=== PATIENT | female | born 2005 | race Caucasian/White ===

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

== ENCOUNTER 2023-10-12 14:40 | Outpatient (CLI) | payer OTHER, SELFPAY ==
--- NOTE | ~2023-10-12 | XR_ITS ---
XR chest 2V 10/12/2023 14:50 Indication: Cough for 5 days Procedure: 2 view chest Comparison: Comparison to multiple prior studies sequentially, with oldest reviewed study dated 03/10. Findings: No focal air space disease, pulmonary edema, pleural effusion or suspected pneumothorax. Th ere is soft tissue attenuation in the right lower thorax. No acute osseous abnormality. Impression: 1: No acute cardiopulmonary disease. Reviewed, dictated and finalized at location A. Impression: 1: No acute cardiopulmonary disease.
== END 2023-10-12 14:41 ==
PROVIDERS: PCP Internal Medicine; Visit Provider Internal Medicine
DX: R05.9 Cough, unspecified (principal)
CPT/HCPCS: 71046

== ENCOUNTER 2023-10-12 14:51 | Outpatient (CLI) | payer OTHER, SELFPAY ==
[2023-10-12 18:48] LABS: Basophils Percent Auto 0.6 % (0.2-1.2); Eosinophils Percent Auto 0.6 % (0-4.4); Hematocrit 41.7 % (37.0-47.0); Hemoglobin 14.1 g/dL (12.0-15.0); Immature Granulocyte Absolute 0.01 K/mm3 (0.00-0.031); Immature Granulocyte Percent A 0.2 % (0-0.5); Lymphocytes Absolute Auto 1.84 K/mm3 (0.9-3.2); Lymphocytes Percent Auto 35.9 % (18.3-44.2); Mean Corpuscular HGB Conc 33.8 g/dl (32-36); Mean Corpuscular Hemoglobin 27.7 pg (26-34); Mean Corpuscular Volume 81.9 fl (80-100); Mean Platelet Volume 12.9 fl (7.4-10.4); Monocytes Absolute Auto 0.5 K/mm3 (0.1-0.6); Monocytes Percent Auto 9.6 % (2.6-8.5); Neutrophils Absolute Auto 2.7 K/mm3 (1.3-6.7); Neutrophils Percent Auto 53.1 % (45.5-73.1); Platelet Count Result 167 k/mm3 (150-375); Red Blood Count 5.09 M/mm3 (4.2-5.4); Red Cell Distribution Width 13.1 % (11.5-14.5); White Blood Count 5.1 K/mm3 (4.5-10.0)
[2023-10-12 19:09] LABS: Strep Group A RT-PCR NOT DETECTED (Negative)
[2023-10-12 19:20] LABS: Influenza A QL RT-PCR Positive (Negative); Influenza B QL RT-PCR Negative (Negative); RSV RNA, RT-PCR Negative (Negative); SARS-CoV-2 RNA PCR Negative (Negative)
== END 2023-10-12 14:52 | disposition home or self-care (01) ==
LOC: ANHGOSHLAB 14:52
PROVIDERS: PCP Internal Medicine; Visit Provider Internal Medicine
DX: R05.9 Cough, unspecified (principal); R52 Pain, unspecified; J02.9 Acute pharyngitis, unspecified
CPT/HCPCS: 36415; 85025; 87637; 87651

== ENCOUNTER 2024-10-07 12:31 | Outpatient (CLI) | payer BC, SELFPAY ==
[2024-10-07 14:07] LABS: Basophils Absolute Auto 0.1 K/mm3 (0.0-0.1); Basophils Percent Auto 0.9 % (0.2-1.2); Eosinophils Absolute Auto 0.2 K/mm3 (0-0.3); Eosinophils Percent Auto 2.8 % (0-4.4); Hemoglobin 14.6 g/dL (12.0-15.0); Immature Granulocyte Absolute 0.03 K/mm3 (0.00-0.031); Immature Granulocyte Percent A 0.4 % (0-0.5); Lymphocytes Absolute Auto 2.41 K/mm3 (0.9-3.2); Lymphocytes Percent Auto 34.3 % (18.3-44.2); Mean Corpuscular HGB Conc 33.2 g/dl (32-36); Mean Corpuscular Hemoglobin 28.4 pg (26-34); Mean Corpuscular Volume 85.6 fl (80-100); Mean Platelet Volume 11.3 fl (7.4-10.4); Monocytes Absolute Auto 0.4 K/mm3 (0.1-0.6); Monocytes Percent Auto 6.3 % (2.6-8.5); Neutrophils Absolute Auto 3.9 K/mm3 (1.3-6.7); Neutrophils Percent Auto 55.3 % (45.5-73.1); Platelet Count Result 308 k/mm3 (150-375); Red Blood Count 5.14 M/mm3 (4.2-5.4); Red Cell Distribution Width 12.3 % (11.5-14.5)
--- OUTSIDE RECORDS SUMMARY | 2024-10-07 14:24 | XMS_ITS | Patient Health Summary ---
Author Organization [facility] Address [address] [place] [address] Care Team Providers Care Business Unit Leader Name Role Phone Antonio Greene MD Primary Care Provider [phone] Note from [facility],non-owned Affiliates and Associated Physician Practices is amultiple site organization consisting of ambulatory clinics and hospital sitesin [place], [place], [place] and [place]. This disclosure is being madepursuant to the Care Everywhere program and may not contain all information available regarding this patient. Last updated 18.[facility] Allergies No known active allergies Medications * Be aware that medications may not be up to date on this document. Alwaysverify current medications with the patient. * multivitamin daily tablet Take 1 tablet by mouth daily with food * SPIRONOLACTONE PO * dexAMETHasone (DECADRON) 6 MG tablet(Started 03/16/2021) Take 1 (one) tablet by mouth 2 times daily Take 1 dose tonight at home and then 1 dose each morningand evening until the Monday * ibuprofen (MOTRIN) 400 MG tablet(Started 03/16/2021) Take 1 (one) tablet by mouth every 8 hours as needed for Pain Reasons: Pain * acetaminophen (TYLENOL) 500 MG tablet(Started 03/16/2021) Take 1 (one) tablet by mouth every 6 hours as needed for Fever or Pain Maximum allowable Acetaminophen amount = 4 Grams (4000 mg) / 24 hours. Active Problems Problem Noted Date Diagnosed Date Pneumonia due to 2019 novel coronavirus 03/12/20 Acute respiratory failure with hypoxia Resolved Problems Problem Noted Date Diagnosed Date Resolved Date Vomiting 06/16/2011 03/15/2021 Abdominal pain, generalized 06/16/2011 03/15/2021 Social History Tobacco Use Types Packs/Day Years Used Date Smoking Tobacco: Unknown Tobacco Cessation:Counseling Given: No Alcohol Use Standard Drinks/Week Comments Never 0 (1 standard drink = 0.6 oz pur e alcohol) Sex and Gender Information Value Date Recorded Sex Assigned at Not on file Gender Identity Not on file Sexual Orientation Not on file Last Filed Vital Signs Vital Sign Reading Time Taken Comments Blood Pressure 124/91 03/16/2021 8:43 AM CDT Pulse 62 03/16/2021 8:43 AM CDT Temperature 36.9 C (98.5 F) 03/16/2021 8:43 AM CDT Respiratory Rate 14 03/16/2021 8:43 AM CDT Oxygen Saturation 94% 03/16/2021 8:43 AM CDT Inhaled Oxygen Concentration 100% 03/15/2021 1 2:08 PM CDT Weight 87.6 kg (193 lb 2 oz) 03/12/2021 8:35 AM CDT Height 171 cm (5' 7.32 ) 03/12/2021 8:35 AM CDT Body Mass Index 29.96 03/12/2021 8:35 AM CDT Procedures * COMPREHENSIVE METABOLIC PANEL(Performed 03/14/2021) * DIFFERENTIAL MANUAL(Performed 03/14/2021) * CBC W AUTO DIFFERENTIAL(Performed 03/14/2021) * CT CHEST W CONTRAST(Performed 03/14/2021) Performed for COVID-19 * D-DIMER(Performed 03/14/2021) * FIBRINOGEN ACTIVITY(Performed 03/14/2021) * PTT [facility](Performed 03/14/2021) * PT-INR [facility](Performed 03/14/2021) * CBC W AUTO DIFFERENTIAL(Performed 03/14/2021) * XR CHEST 1VW(Performed 03/14/2021) Performed for COVID-19 * DIFFERENTIAL MANUAL(Performed 03/13/2021) * COMPREHENSIVE METABOLIC PANEL(Performed 03/13/2021) * CBC W AUTO DIFFERENTIAL(Performed 03/13/2021) * DIFFERENTIAL MANUAL(Performed 03/12/2021) * CBC W AUTO DIFFERENTIAL(Performed 03/12/2021) * PT-INR [facility](Performed 03/12/2021) * COMPREHENSIVE METABOLIC PANEL(Performed 03/12/2021) * PATHOLOGY/CYTOLOGY REPORT ORDER(Performed 05/01/2012) * ESOPHAGOGASTRODUODENOSCOPY (EGD) BIOPSY(Performed 04/30/2012) Performed for Vomiting * EGD(Performed 04/30/2012) Performed for Vomiting, Abdominal pain, generalized * HELICOBACTER PYLORI UREASE(Performed 04/30/2012) Performed for Vomiting, Abdominal pain, generalized * PATHOLOGY TISSUE EXAM (STL)(Performed 04/30/2012) Performed for Vomiting, Abdominal pain, generalized * LAB RESULTS ORDER(Performed 06/28/2011) * MRI BRAIN WWO CONTRAST(Performed 06/20/2011) Performed for Vomiting Results * (ABNORMAL) COMPREHENSIVE METABOLIC PANEL (03/14/2021 11:26 PM CDT) Only the most recent of3 resultswithin the time period is included. BUN 10 5 - 19 mg/dL 03/14/2021 11:[address] [facility] Creatinine 0.49(L) 0.56 - 0.96 mg/dL 03/14/2021 11:[address] [facility] Sodium 140 136 - 145 mmol/L 03/14/2021 11:[address] [facility] Potassium 4.2 3.5 - 5.1 mmol/L 03/14/2021 11:59 PM [facility] Chloride 109(H) 98 - 107 mmol/L 03/14/2021 11:[address] [facility] CO2 22 20 - 28 mmol/L 03/14/2021 11:59 PM [facility] Glucose 160(H) 70 - 115 mg/dL 03/14/2021 11:[address] [facility] Calcium 8.8 8.4 - 10.2 mg/dL 03/14/2021 11:[address] [facility] Protein Total 6.8 6.0 - 8.3 g/dL 03/14/2021 11:[address] [facility] Albumin 3.1(L) 3.4 - 5.0 g/dL 03/14/2021 11:[address] [facility] Bilirubin Total 0.2(L) 0.3 - 1.2 mg/dL 03/14/2021 11:[address] [facility] Alkaline Phosphatase 136 100 - 390 U/L 03/14/2021 11:[address] [facility] ALT 65(H) 5 - 55 U/L 03/14/2021 11:[address] [facility] AST 26 3 - 35 U/L 03/14/2021 11:[address] [facility] Anion Gap 13 8 - 18 03/14/2021 11:[address] [facility] BUN/Creatinine Ratio 20 7 - 23 03/14/2021 11:[address] [facility] Osmolality Calculated 292 270 - 300 mOsm/kg 03/14/2021 11:[address] [facility] Blood BLOOD SPECIMEN / Unknown Lab Venipuncture / Unknown 03/14/2021 11:26 PM CDT 03/14/2021 11:42 PM CDT Natacha Blanco MD LAB - CHEMISTRY [place] Organization Address City/State/ZIP Co de Phone Number [address] [address], [facility] [phone] * (ABNORMAL) DIFFERENTIAL MANUAL (03/14/2021 11:25 PM CDT) Only the most recent of3 resultswithin the time period is included. WBC (corrected for NRBC) 4.0 10 3/uL 03/15/2021 1:[address] [facility] Total Cell Count 100 03/15/2021 1:[address] [facility] Neutrophils Absolute Manual 1.20(L) 1.60 - 7.00 10 3/uL 03/15/2021 1:[address] [facility] Comment:(BANDS+SEGS) x WBC = NEUT # (ANC) Lymphocyte Absolute Manual 2.12 0.60 - 5.90 10 3/uL 03/15/2021 1:[address] [facility] Monocytes Absolute Manual 0.48 0.18 - 1.43 10 3/uL 03/15/2021 1:[address] [facility] Neutrophil % Manual 30(L) 31 - 78 % 03/15/2021 1:[address] [facility] Lymphocyte % Manual 53 13 - 54 % 03/15/2021 1:[address] [facility] Monocytes % Manual 12 4 - 13 % 03/15/2021 1:[address] [facility] Atypical Lymphocyte % Manual 5(H) 0 % 03/15/2021 1:[address] [facility] Platelet Estimate Adequate Adequate 03/15/2021 1:[address] [facility] RBC Morphology Normal 03/15/2021 1:[address] [facility] Blood BLOOD SPECIMEN / Unknown Lab Venipuncture / Unknown 03/14/2021 11:25 PM CDT 03/14/2021 11:35 PM CDT Natacha Blanco MD LAB - HEMATOLOGY ORD ERABLES [address] [address], [facility] [phone] * (ABNORMAL) CBC W AUTO DIFFERENTIAL (03/14/2021 11:25 PM CDT) Only the most recent of4 resultswithin the time period is included. WBC 4.0(L) 4.5 - 11.0 10 3/uL 03/14/2021 11:[address] [facility] RBC 5.02 4.10 - 5.10 10 6/uL 03/14/2021 11:[address] [facility] Hemoglobin 13.8 12.0 - 16.0 g/dL 03/14/2021 11:[address] [facility] Hematocrit 42.5 36.0 - 47.0 % 03/14/2021 11:[address] [facility] MCV 84.7 78.0 - 98.0 fL 03/14/2021 11:52 PM CDT [facility] MCH 27.5 25.0 - 35.0 pg 03/14/2021 11:52 PM CDT [facility] MCHC 32.5 31.0 - 37.0 g/dL 03/14/2021 11:52 PM T [facility] Platelet Count 217 100 - 400 10 3/uL 03/14/2021 11:52 PM T [facility] RDW-SD 44.3 36.0 - 50.0 fL 03/14/2021 11:52 PM T [facility] RDW-CV 14.3(H) 11.5 - 14.0 % 03/14/2021 11:52 PM T [facility] MPV 10.9(H) 6.0 - 9.5 fL 03/14/2021 11:52 PM T [facility] nRBC Absolute 0.00 0 10 3/uL 03/14/2021 11:52 PM T [facility] nRBC Auto 0.0 0 /100 WBC 03/14/2021 11:52 PM T [facility] Blood BLOOD SPECIMEN / Unknown Lab Venipuncture / Unknown 03/14/2021 11:25 PM CDT 03/14/2021 11:35 PM CDT Natacha Blanco MD LAB - HEMATOLOGY ORD ERABLES [facility] [address] [place] [address], [facility] [phone] * CT CHEST W CONTRAST (03/14/2021 2:47 PM CDT) Anatomical Region Laterality Modality Chest Computed Tomogra phy 03/15/2021 11:2 5 AM CDT Impressions 03/15/2021 11:34 AM CDT 1. No evidence of central or segmental pulmonary thromboembolic disease. Evaluation for subsegmental pulmonary emboli within the lung bases is compromised by motion artifact. 2. Findings consistent with pulmonary involvement of COVID-19. *Reading Radiologist: Miguel Crump on 03/15/2021 at 11:34 AM Narrative 03/15/2021 11:34 AM CDT INDICATION: Covid 19 COMPARISON: Chest radiograph March 14, 2021 TECHNIQUE: CT of the chest with 95 mL Isovue-300 intravenous contrast. Coronal and sagittal reformatted images were submitted. DOSE: CTDI: 2.73 mGy, DLP: 7.74 mGy-cm CTDI: 15.94 mGy, DLP: 7.97 mGy-cm CTDI: 14.33 mGy, DLP: 497.80 mGy-cm The reported CTDIvol (mGy) and DLP (mGy-cm) values are generated from scan acquisition factors based on 32 cm (body) or 16 cm (head) phantoms and may underestimate or overestimate the actual patient dose based on patient size and other factors. FINDINGS: Expiratory phase imaging. Image quality is degraded by respiratory motion artifact in the lung bases, limiting evaluation of subsegmental pulmonary emboli.. Lungs: Multifocal bilateral predominantly peripheral and peribronchial vascular groundglass opacities and consolidations. Pleural spaces: No pneumothorax or pleural effusion. Mediastinum: No evidence of pulmonary thromboembolic disease. No evidence of right ventricular strain or pulmonary hypertension. The heart and great vessels of the chest are normal. No pericardial thickening or effusion. No tracheal collapse or deviation. Secretions within the central airways. Bones: The bones are normal. Abdomen: The imaged upper abdomen is normal. Procedure Note Miguel Crump, DO - 03/15/2021 INDICATION: Covid 19 COMPARISON: Chest radiograph March 14, 2021 TECHNIQUE: CT of the chest with 95 mL Isovue-300 intravenous contrast. Coronal and sagittal reformatted images were submitted. DOSE: CTDI: 2.73 mGy, DLP: 7.74 mGy-cm CTDI: 15.94 mGy, DLP: 7.97 mGy-cm CTDI: 14.33 mGy, DLP: 497.80 mGy-cm The reported CTDIvol (mGy) and DLP (mGy-cm) values are generated from scan acquisition factors based on 32 cm (body) or 16 cm (head) phantoms and may underestimate or overestimate the actual patient dose based on patient size and other factors. FINDINGS: Expiratory phase imaging. Image quality is degraded by respiratory motion artifact in the lung bases, limiting evaluation of subsegmental pulmonary emboli.. Lungs: Multifocal bilateral predominantly peripheral and peribronchial vascular groundglass opacities and consolidations. Pleural spaces: No pneumothorax or pleural effusion. Mediastinum: No evidence of pulmonary thromboembolic disease. No evidence of right ventricular strain or pulmonary hypertension. The heart and great vessels of the chest are normal. No pericardial thickening or effusion. No tracheal collapse or deviation. Secretions within the central airways. Bones: The bones are normal. Abdomen: The imaged upper abdomen is normal. IMPRESSION 1. No evidence of central or segmental pulmonary thromboembolic disease. Evaluation for subsegmental pulmonary emboli within the lung bases is compromised by motion artifact. 2. Findings consistent with pulmonary involvement of COVID-19. *Reading Radiologist: Miguel Crump on 03/15/2021 at 11:34 AM Margarette Austin MD CT ORDERABLES * PTT [facility] (03/14/2021 12:58 PM CDT) APTT 29.7 23.0 - 38.4 Seconds 03/14/2021 1:39 PM CDT [facility] Comment:Suggested therapeuti c range for full dose I.V. unfractionated heparin therapy for venous thromboembolism is 71 to 109 seconds. Blood BLOOD SPECIMEN / Unknown Lab Venipuncture / Unknown 03/14/2021 12:58 PM CDT 03/14/2021 1:21 PM CDT Narrative [facility] - 03/14/2021 1:39 PM CDT Reference intervals for this test are valid for adults at [facility]. Pediatric reference intervals may be slightly different. Margarette Austin MD LAB - COAGULATION OR DERABLES [facility] [address] [place] [address], [facility] [phone] * PT-INR [facility] (03/14/2021 12:58 PM CDT) Only the most recent of2 resultswithin the time period is included. PT 13.9 12.1 - 14.8 Seconds 03/14/2021 1:38 PM CDT [facility] INR 1.1 See Comment 03/14/2021 1:38 PM CDT [facility] Comment:The suggested therap eutic range for standard coumadin (warfarin) therapy is an INR of 2.0-3.0. For high-risk patients (Mechanical Mitral Valve Prosthesis, etc.), the suggested prophylactic therapeutic range is an INR of 2.5-3.5. Blood BLOOD SPECIMEN / Unknown Lab Venipuncture / Unknown 03/14/2021 12:58 PM CDT 03/14/2021 1:21 PM CDT Narrative [facility] - 03/14/2021 1:38 PM CDT Reference intervals for this test are valid for adults at [facility]. Pediatric reference intervals may be slightly different. Maragrette Austin MD LAB - COAGULATION OR DERABLES [facility] [address] [place] [id number], [facility] [phone] * D-DIMER (03/14/2021 12:58 PM CDT) D-Dimer Quantitative 0.46 <=0.50 mcg/mL FEU 03/14/2021 2:06 PM CDT [facility] Comment: In the absence of clinical symptoms, a value less than or equal to 0.5 mcg/mL FEU significantly decreases the probability of PE/DVT (negative predictive value >95%). 1 mcg/mL FEU = 1 Fibrinogen Equivalent Unit (approximates 0.5 mcg/ml of D- Dimer). ISTH DIAGNOSTIC SCORING SYSTEM FOR DIC Score 0 1 2 3 Platelet Count(x10^3/uL) > 100 < 100 < 50 N/A PT Prolongation above upper limit of normal 0-3 3-6 > 6 N/A range (seconds) Fibrinogen (mg/dL) > 100 < 100 N/A N/A D-Dimer (mcg/mL FEU) < 0.50 N/A 0.50-5.0 > 5 Calculate Cumulative Score: > or = 5 :compatible with overt DIC < 5 :suggestive for non-overt DIC N/A = Non applicable Reference: Br. J. Haematol. 145:24-33,2009. Blood BLOOD SPECIMEN / Unknown Lab Venipuncture / Unknown 03/14/2021 12:58 PM CDT 03/14/2021 1:21 PM CDT Margarette Austin MD LAB - COAGULATION OR DERABLES [address] [address], [facility] [phone] * FIBRINOGEN ACTIVITY (03/14/2021 12:58 PM CDT) Fibrinogen Damienuss 314 200 - 400 mg/dL 03/14/2021 1:39 PM CDT [facility] Blood BLOOD SPECIMEN / Unknown Lab Venipuncture / Unknown 03/14/2021 12:58 PM CDT 03/14/2021 1:21 PM CDT Margarette Austin MD LAB - COAGULATION OR DERABLES Performing Organization Address [facility]/ZIP Co de Phone Number [facility] [address] [place] [address], [facility] [phone] * XR CHEST PORTABLE/BEDSIDE (03/14/2021 12:11 PM CDT) Anatomical Region Laterality Modality Chest Radiographic Isabella ging 03/14/2021 12:1 3 PM CDT Impressions 03/14/2021 12:14 PM CDT Patchy airspace opacities consistent with Covid pneumonia. *Reading Radiologist: Ananda Cary on 03/14/2021 at 12:14 PM Narrative 03/14/2021 12:14 PM CDT INDICATION: COVID-19 EXAMINATION: AP portable view(s) of the chest 03/14/2021 COMPARISON: None FINDINGS: Lungs are hypoinflated with central peribronchial thickening and multifocal patchy ill-defined airspace opacities bilaterally. There is no evidence of pleural effusion or pneumothorax. Heart size and mediastinal contours are normal. Osseous structures are normal for age. Procedure Note Ananda Cary MD - 03/14/2021 INDICATION: COVID-19 EXAMINATION: AP portable view(s) of the chest 03/14/2021 COMPARISON: None FINDINGS: Lungs are hypoinflated with central peribronchial thickening and multifocal patchy ill-defined airspace opacities bilaterally. There is no evidence of pleural effusion or pneumothorax. Heart size and mediastinal contours are normal. Osseous structures are normal for age. IMPRESSION Patchy airspace opacities consistent with Covid pneumonia. *Reading Radiologist: Ananda Cary on 03/14/2021 at 12:14 PM Margarette Austin MD DIAGNOSTIC IMAGING O RDERABLES * PATHOLOGY/CYTOLOGY REPORT ORDER (05/01/2012 8:59 AM CDT) Narrative Transcriptions Document, Scanned - 05/01/2012 8:59 AM CDT Scanned Document LAB - PATHOLOGY/CYTO LOGY ORDERABLES * EGD (04/30/2012 9:04 AM CDT) Narrative Transcriptions Laura Gonsales MD - 04/30/2012 9:04 AM CDT Laura Gonsales MD GI PROCEDURE ORDERAB LES Performing Organization Address [facility] Co de Phone Number [facility] [address] [place] [address] * HELICOBACTER PYLORI UREASE (04/30/2012 7:58 AM CDT) Helicobacter pylori Urease Initial Negative Negative 05/01/2012 8:49 AM CDT [facility] Helicobacter pylori Urease Final Negative Negative 05/01/2012 8:49 AM CDT [facility] Comment:This is an appended report. These results have been appended to a previously preliminary verified report. Miscellaneous samples (specimen) GASTRIC ANTRAL BIOPSY SPECIMEN / Unknown 04/30/2012 7:58 AM CDT 04/30/2012 8:09 AM CDT Laura Gonsales MD LAB - MICROBIOLOGY O RDERABLES Performing Organization Address [facility] de Phone Number [facility] [address] [place] [address] * GROSS + MICRO EXAM (STL) (04/30/2012 7:50 AM CDT) Case Report Surgical Pathology Report Case: [id number] Authorizing Provider: Laura Gonsales MD Ordering Provider: Laura Gonsales MD Ordering Location: ENDOSCOPY SERVICES Collected: 04/30/2012 7:50 AM Pathologist: Karson Hernandez MD Received: 04/30/2012 8:42 AM Signed Out: 05/02/2012 6:27 PM (Final) Specimens: A) - Esophagus, Mid B) - Esophagus, Distal C) - Stomach Biopsy D) - Duodenum 05/02/2012 6:28 PM [facility] Final Diagnosis A) ESOPHAGUS, MID, BIOPSY: - ESOPHAGITIS, MILD. - SEE COMMENT. B) ESOPHAGUS, DISTAL, BIOPSY: - NO PATHOLOGIC DIAGNOSIS. C) STOMACH, BIOPSY: - NO PATHOLOGIC DIAGNOSIS. D) DUODENUM, BIOPSY: - NO PATHOLOGIC DIAGNOSIS. COMMENT: The mid esophageal biopsy (specimen A) focally has increased intraepithelial lymphocytes, with associated spongiosis and mild basal hyperplasia. These findings are consistent with mild esophagitis. Clinical correlation is recommended. (NU/vr) 05/02/2012 6:28 PM [facility] Clinical History The patient is a 7-year-old girl with vomiting and abdominal pain for greater than one year despite acid suppression. An MRI of the brain was normal. The patient underwent upper endoscopy which was found to be normal. 05/02/2012 6:28 PM [facility] Gross Description The specimens are received fixed in formalin in four containers for gross and microscopic examination. All containers are labeled with the patient's name, Modesta Mendiola. Specimen A, mid-esophagus, consists of two 2 mm soft, smith-pink tissue fragments submitted in toto as A1. Specimen B, distal esophagus, consists of two 2 mm soft, smith-pink tissue fragments submitted in toto as B1. Specimen C, stomach, consists of four soft, yellow-pendleton tissue fragments, 2 mm to 4 mm in greatest dimension. The specimen is submitted in toto as C1. Specimen D, duodenum, consists of five 3 mm soft, yellow-pendleton tissue fragments submitted in toto as D1. (CT/mal) 05/02/2012 6:28 PM [facility] Microscopic Description A) 3 H&E, B) 3 H&E, C) 3 H&E, D) 3 H&E. Sections of the mid esophagus, demonstrate multiple fragments of esophageal mucosa. Two of the biopsy fragments have focal increase in intraepithelial lymphocytes, with associated mild basal hyperplasia and spongiosis. Besides these, the rest of the biopsy fragments are histopathologically unremarkable. Sections of the distal esophagus, demonstrate multiple fragments of histopathologically unremarkable esophageal mucosa. Sections of the stomach, demonstrate multiple fragments of histopathologically unremarkable gastric mucosa. Sections of the duodenum, demonstrate multiple fragments of histopathologically unremarkable duodenal mucosa, with small lymphoid aggregates in the lamina propria. (NU/vr) 05/02/2012 6:28 PM T [facility] Disclaimer The performance characteristics of all immunohistochemical and indirect immunofluorescence stains (if any) cited in this report were determined by the Histopathology Laboratory of [facility] (immunohistochemistry ) or the Histology Laboratory of [facility] (indirect immunofluorescence) in compliance with CLIA `88 regulations. Some of these tests rely on the use of analyte-specific reagents and are subject to specific labeling requirements by the FDA. Such tests were developed by the Histopathology Laboratory of [facility] or the Histology Laboratory of [facility] and have not been cleared or approved by the FDA. The FDA has determined that such clearance or approval is not necessary. These tests are used for clinical purposes and should not be regarded as investigational or for research. This case has been personally reviewed and interpreted by the attending (teaching) pathologist. 05/02/2012 6:28 PM T [facility] Synoptic Report 05/02/2012 6:28 PM T [facility] Miscellaneous samples (specimen) REGION OF ESOPHAGUS / Unknown 04/30/2012 7:50 AM CDT 04/30/2012 8:42 AM CDT Miscellaneous samples (specimen) REGION OF ESOPHAGUS / Unknown 04/30/2012 7:50 AM CDT 04/30/2012 8:42 AM CDT Miscellaneous samples (specimen) BIOPSY OF STOMACH / Unknown 04/30/2012 7:50 AM CDT 04/30/2012 8:42 AM CDT Miscellaneous samples (specimen) PART OF DUODENUM / Unknown 04/30/2012 7:50 AM CDT 04/30/2012 8:42 AM CDT Laura Gonsales MD LAB - PATHOLOGY/CYTO LOGY ORDERABLES [facility] [address] [place] [address] * LAB RESULTS ORDER (06/28/2011 6:17 PM AIRPORT MAINTENANCE LABORER) Narrative Transcriptions Document, Scanned - 06/28/2011 6:17 PM CST Scanned Document LAB - THERAPEUTIC DR ZAZUETA MONITORING ORDERABLES * MRI BRAIN WITH AND WITHOUT CONTRAST (06/20/2011 7:52 AM AIRPORT MAINTENANCE LABORER) Anatomical Region Laterality Modality Head Magnetic Resonan ce 06/20/2011 9:06 AM AIRPORT MAINTENANCE LABORER Narrative 06/20/2011 10:15 AM AIRPORT MAINTENANCE LABORER PRECONTRAST: T1: Axial. T2: Axial. FLAIR: Axial. DWI: Axial. POSTCONTRAST: T1: Axial, sagittal, coronal. The midline structures are central. The ventricles are neither dilated nor displaced. The brain signal intensity with its smith white matter interface is normal. No diffusion restriction is seen. No abnormal parenchymal or leptomeningeal enhancement is seen. The cerebellar tonsils are low-lying. The left calcarine fissure is asymmetric when compared to the right, a nonspecific finding. Diagnosis: Brain MRI within normal limits. No acute disease Dictated by Nuris Hogan MD Procedure Note Paolo Khan MD - 06/20/2011 PRECONTRAST: T1: Axial. T2: Axial. FLAIR: Axial. DWI: Axial. POSTCONTRAST: T1: Axial, sagittal, coronal. The midline structures are central. The ventricles are neither dilated nor displaced. The brain signal intensity with its smith white matter interface is normal. No diffusion restriction is seen. No abnormal parenchymal or leptomeningeal enhancement is seen. The cerebellar tonsils are low-lying. The left calcarine fissure is asymmetric when compared to the right, a nonspecific finding. Diagnosis: Brain MRI within normal limits. No acute disease Dictated by Nuris Hogan MD Irene Jones [employer]-HOME THEATER EXPERT MR ORDERABLES Care Teams Business Unit Leader Relationship Specialty Start Date End Date Antonio Greene MD [address] [facility] [address] [place] [id number] PCP - General 01/21/21
--- OUTSIDE RECORDS SUMMARY | 2024-10-07 14:24 | XMS_ITS | Clinical Summary ---
Author Organization [facility] Address [address] [facility] [place] [address] Care Team Providers Care Relocation Director Name Role Phone Antonio Greene MD Primary Care Provider [phone] Source Comments [facility],non-owned Affiliates and Associated Physician Practices is amultiple site organization consisting of ambulatory clinics and hospital sitesin [place], [place], [place] and [place]. This disclosure is being madepursuant to the Care Everywhere program and may not contain all information available regarding this patient. Last updated 18.[facility] Allergies No known active allergies Medications * Be aware that medications may not be up to date on this document. Alwaysverify current medications with the patient. Medication Sig Dispensed Refills Start Date End Date Status multivitamin daily tablet Take 1 tablet by mouth daily with food Active SPIRONOLACTONE PO Active dexAMETHasone (DECADRON) 6 MG tablet Take 1 (one) tablet by mouth 2 times daily Take 1 dose tonight at home and then 1 dose each morning and evening until the Monday the 20 04 tablet 03/16/2021 Active ibuprofen (MOTRIN) 400 MG tabletIndications: Pain Take 1 (one) tablet by mouth every 8 hours as needed for Pain Reasons: Pain 40 tablet 03/16/2021 Active acetaminophen (TYLENOL) 500 MG tablet Take 1 (one) tablet by mouth every 6 hours as needed for Fever or Pain Maximum allowable Acetaminophen amount = 4 Grams (4000 mg) / 24 hours. 40 tablet 03/16/2021 Active Active Problems Problem Noted Date Diagnosed Date Pneumonia due to 2019 novel coronavirus 03/12/20 21 Assessment & Plan (03/16/2021 9:59 PM CDT): Assessment: Modesta Mendiola is a previously healthy (COVID unimmunized) 15 year old female hospitalized due to acute respiratory failure secondary to COVID-19 pneumonia. Secondary bacterial pneumonia unlikely with symmetric lung exam. Pt continues to require inpatient hospitalization due to risk for progressive respiratory failure, thrombosis, as well as later sequela of COVID 19 including MIS-C. Plan: - Simple O2 mask, 5L PRN for comfort/hypoxia - Scheduled Motrin, Tylenol -- consider making PRN tomorrow if remains clinically improving - Continue steroid course, day 6/10 of dexamethasone 6mg - Remdesivir 100mg (day 4/5) - Monitor labs for remdesivir: PT/INR, CBC and CMP QOD - Follow OSH blood culture - Follow CRP, ESR, CBC and CMP QOD - Lovenox 40mg - switch to BID for prophylaxis - Regular Diet - IVF NS - saline lock and monitor PO intake - Incentive spirometer Q2hrs while awake - VS q8hrs - monitor I/O Assessment & Plan (03/15/2021 3:39 PM CDT): Assessment: Modesta Mendiola is a previously healthy (COVID unimmunized) 15 year old female hospitalized due to acute respiratory failure secondary to COVID-19 pneumonia. Secondary bacterial pneumonia unlikely with symmetric lung exam. Pt continues to require inpatient hospitalization due to risk for progressive respiratory failure, thrombosis, as well as later sequela of COVID 19 including MIS-C. Plan: - Simple O2 mask, 5L PRN for comfort/hypoxia - Scheduled Motrin, Tylenol -- consider making PRN tomorrow if remains clinically improving - Continue steroid course, day 6/10 of dexamethasone 6mg - Remdesivir 100mg (day 4/5) - Monitor labs for remdesivir: PT/INR, CBC and CMP QOD - Follow OSH blood culture - Follow CRP, ESR, CBC and CMP QOD - Lovenox 40mg - switch to BID for prophylaxis - Regular Diet - IVF NS - saline lock and monitor PO intake - Incentive spirometer Q2hrs while awake - VS q8hrs - monitor I/O Assessment & Plan (03/14/2021 2:50 PM CDT): Assessment: Modesta Mendiola is a previously healthy COVID unimmunized 15 year old female hospitalized due to COVID-19 pneumonia and acute respiratory failure. Secondary bacterial pneumonia unlikely with symmetric lung exam. Pt at risk for progressive respiratory failure, thrombosis, as well as later sequela of COVID 19 including MIS-C. ID service aware of patient. 03/14: Developed hemoptysis and pink frothy sputum. CXR consistent with COVID pneumonia. CBC and Coags reassuring. DDimer is normal. Discussed with pulmonology and will proceed with CT Chest. Plan: - Simple O2 mask, 5L PRN for comfort/hypoxia - Schedule Motrin, PRN Tylenol - Continue steroid course, day 5/10 of dexamethasone 6mg - Remdesivir at 200 mg loading dose today, then 100mg for 4 days (total of 5 days) - Monitor labs tied to remdesivir: PT/INR, CBC and CMP - Follow OSH blood culture - Follow CRP, ESR, CBC and CMP Q2days - Lovenox 40mg BID for prophylaxis - Regular Diet - IVF NS - Incentive spirometer Q2hrs while awake - VS q8hrs - I/Os - F/U CT Chest Assessment & Plan (03/14/2021 2:49 PM CDT): Assessment: Modesta Mendiola is a previously healthy COVID unimmunized 15 year old female hospitalized due to COVID-19 pneumonia and acute respiratory failure. Secondary bacterial pneumonia unlikely with symmetric lung exam. Pt at risk for progressive respiratory failure, thrombosis, as well as later sequela of COVID 19 including MIS-C. ID service aware of patient. 03/14: Developed hemoptysis and pink frothy sputum. CXR consistent with COVID pneumonia. CBC and Coags reassuring. DDimer is normal. Discussed with pulmonology and will proceed with CT Chest. Plan: - Simple O2 mask, 5L PRN for comfort/hypoxia - Schedule Motrin, PRN Tylenol - Continue steroid course, day 5/10 of dexamethasone 6mg - Remdesivir at 200 mg loading dose today, then 100mg for 4 days (total of 5 days) - Monitor labs tied to remdesivir: PT/INR, CBC and CMP - Follow OSH blood culture - Follow CRP, ESR, CBC and CMP Q2days - Lovenox 40mg BID for prophylaxis - Regular Diet - IVF NS - Incentive spirometer Q2hrs while awake - VS q8hrs - I/Os Assessment & Plan (03/13/2021 2:18 PM CDT): Assessment: Modesta Mendiola is a previously healthy COVID unimmunized 15 year old female hospitalized due to COVID-19 pneumonia and acute respiratory failure. Secondary bacterial pneumonia unlikely with symmetric lung exam. Pt at risk for progressive respiratory failure, thrombosis, as well as later sequela of COVID 19 including MIS-C. ID service aware of patient Plan: - Simple O2 mask, 5L PRN for comfort/hypoxia - Schedule naproxen for significant myalgia. Prn tylenol - Continue steroid course, day 3/10 of dexamethasone 6mg - Start remdesivir at 200 mg loading dose today, then 100mg for 4 days (total of 5 days) - Monitor labs tied to remdesivir: PT/INR, CBC and CMP - Follow OSH blood culture - Follow CRP, ESR, CBC and CMP Q2days - Lovenox 40mg BID for prophylaxis - Regular Diet - IVF NS - Incentive spirometer Q2hrs while awake - VS q8hrs - I/Os Assessment & Plan (03/12/2021 8:15 PM CDT): Assessment: Modesta Mendiola is a previously healthy 15 year old female who presents with suspected COVID pneumonia who has not improved on steroids and azithromycin and is requiring supplemental oxygen. Etiology is most likely COVID pneumonia based on positive test, CXR suspicious for viral pneumonia and consistent clinical picture. Plan: - Admit to general medicine, Dr. Blanco - TAYLOR cruz, continuous pulse oximetry - Simple O2 mask, 5L - CBC, CMP, ESR, CRP, blood culture pending from OSH - Discussed medication recommendations with Infectious Disease - Continue steroid course, day 3/10 of dexamethasone 6mg - Start remdesivir at 200 mg loading dose today, then 100mg for 4 days (total of 5 days) - Monitor labs tied to remdesivir: PT/INR, CBC and CMP - Follow CRP, ESR, CBC and CMP Q2days - Lovenox 40mg BID for prophylaxis - Regular Diet - IVF NS - Incentive spirometer Q2hrs while awake - VS q8hrs - I/Os Acute respiratory failure with hypoxia Resolved Problems Problem Noted Date Diagnosed Date Resolved Date Vomiting 06/16/2011 03/15/2021 Abdominal pain, generalized 06/16/2011 03/15/2021 Family History Medical History Relation Name Comments Asthma Mother Cancer - Breast Mother Relation Name Status Comments Mother Social History Tobacco Use Types Packs/Day Years [...] Mass Index 29.96 03/12/2021 8:35 AM CDT Plan of Treatment Health Maintenance Due Date Last Done Comments PAP SMEAR 2003 HIV SCREENING 2018 HPV VACCINE (1 - 3-dose series) 2018 CHLAMYDIA/GONORRHEA SCREENING 2019 MENINGOCOCCAL (Group B) VACC INE (1 of 2 - Standard) 2019 HEPATITIS C SCREENING 03/31/2021 DTAP/TDAP/TD VACCINES (1 - Tdap) 2022 HEPATITIS B VACCINE (1 of 3 - 19+ 3-dose series) 2022 COVID-19 VACCINE (1 - 2023-2 5 season) 2024 INFLUENZA VACCINE (#1) 2024 DEPRESSION SCREENING 07/31/2024 ZOSTER VACCINE (1 of 2) 2053 HIB VACCINE Aged Out No longer eligi ble based on patient's age to complete this topic MENINGOCOCCAL VACCINE Aged Out No belle kareem eligible based on patient's age to complete this topic PNEUMOCOCCAL VACCINE Aged Out No long er eligible based on patient's age to complete this topic Advance Directives * Full Code (Latest Code Status on File) Date Activated Date Inactivated Comments 03/12/2021 8:49 AM 03/16/2021 12:23 PM Care Teams Relocation Director Relationship Specialty Start Date End Date Antonio Greene MD [address] [place] [address] PCP - General 01/21/21
--- OUTSIDE RECORDS SUMMARY | 2024-10-07 14:24 | XMS_ITS | Referral Summary ---
Author Organization [facility] Address [address] [facility] [place] [address] Care Team Providers Care Completions Manager Name Role Phone Antonio Greene MD Primary Care Provider [phone] Source Comments [facility],non-owned Affiliates and Associated Physician Practices is amultiple site organization consisting of ambulatory clinics and hospital sitesin [place], [place], [place] and [place]. This disclosure is being madepursuant to the Care Everywhere program and may not contain all information available regarding this patient. Last updated 18.[facility] Allergies No known active allergies Medications * [...] Mass Index 29.96 03/12/2021 8:35 AM CDT Functional Status Functional Status Response Date of Assess ment Is person deaf or have serious hearing difficult y? No 03/12/2021 Is person blind or have serious difficulty seein g? No 03/12/2021 Does person have serious dif ficulty walking/climbing stairs? No 03/12/2021 Does person have difficulty dressing/bathing? No 03/12/2021 Does person have difficulty doing errands alone? No 03/12/2021 Cognitive Status Response Date of Assessm ent Does person have difficulty concentrating/remembering/making decisions? No 03/12/2021 Plan of Treatment Not on file Advance Directives * Full Code (Latest Code Status on File) Date Activated Date Inactivated Comments 03/12/2021 8:49 AM 03/16/2021 12:23 PM Care Teams Completions Manager Relationship Specialty Start Date End Date Antonio Greene MD [address] [facility] [address] [place] [address] PCP - General 01/21/21
--- OUTSIDE RECORDS SUMMARY | 2024-10-07 14:24 | XMS_ITS | Clinical Summary ---
Author Organization [facility] Address [address] [place] [id number] Care Team Providers Care Agricultural Sales Representative Name Role Phone Unavailable Primary Care Provider Unavailabl e Social History Tobacco Use Types Packs/Day Years Used Date Smoking Tobacco: Never Assessed Comments Unknown Sex and Gender Information Value Date Recorded Sex Assigned at Not on file Legal Sex Female 7:18 PM CDT Gender Identity Not on file Sexual Orientation Not on file Plan of Treatment Health Maintenance Due Date Last Done Comments Cervical Cancer Screening Pa p Smear (Age 21 to 29) Every 3 Years 2003 Cervical Cancer Screening 2003 Annual Physical 2006 HPV Vaccines (1 - 3-dose series) 2018 Meningococcal B Vaccine (1 o f 2 - Standard) 2019 Hepatitis C 2021 DTaP, Tdap and Td Vaccines ( 1 - Tdap) 2022 Hepatitis B Vaccines (1 of 3 - 19+ 3-dose series) 2022 COVID-19 Vaccine ( - 2023-2 5 season) 2024 Influenza Adult (#1) 2024 Meningococcal Vaccine Aged Out No belle kareem eligible based on patient's age to complete this topic Pneumococcal Vaccine: Pediat rics (0 to 5 Years) and At-Risk Patients (6 to 64 Years) Aged Out No longer eligible b ased on patient's age to complete this topic RSV Immunizations Under 20 Months Aged Out No longer eligible based on patient's age to complete this topic
[2024-10-07 14:30] LABS: Strep Group A RT-PCR DETECTED (Negative)
[2024-10-07 19:20] LABS: Monoscreen Negative (Negative); Negative Monotest Control Negative (Negative); Positive Monotest Control Positive (Positive)
== END 2024-10-07 12:32 | disposition home or self-care (01) ==
PROVIDERS: PCP Internal Medicine; Visit Provider Internal Medicine
DX: R50.9 Fever, unspecified (principal)
CPT/HCPCS: 36415; 85025; 86308; 87651

== ENCOUNTER 2025-07-28 03:06 | Emergency (ER) | payer BC, SELFPAY ==
--- OUTSIDE RECORDS SUMMARY | 2025-07-28 03:08 | XMS_ITS | Clinical Summary ---
Author Organization [facility] Address [address] [place] [address] Care Team Providers Care Inspector Assemblies And Installations Name Role Phone Antonio Greene MD Primary Care Provider [phone] Source Comments [facility],non-owned Affiliates and Associated Physician Practices is amultiple site organization consisting of ambulatory clinics and hospital sitesin [place], [place], [place] and [place]. This disclosure is being madepursuant to the Care Everywhere program and may not contain all information available regarding this patient. Last updated 18.[facility] [employer] Allergies No known active allergies Medications * Be aware that medications may not be up to date on this document. Alwaysverify current medications with the patient. multivitamin daily tablet Take 1 tablet by mouth daily with food Active SPIRONOLACTONE PO Active dexAMETHasone (DECADRON) 6 MG tablet Take 1 (one) tablet by mouth 2 times daily Take 1 dose tonight at home and then 1 dose each morning and evening until the Monday the 9 tablet 1 Active ibuprofen (MOTRIN) 400 MG tabletIndicati ons:Pain Take 1 (one) tablet by mouth every 8 hours as needed for Pain Reasons: Pain 40 tablet 1 Active acetaminophen (TYLENOL) 500 MG tablet Take 1 (one) tablet by mouth every 6 hours as needed for Fever or Pain Maximum allowable Acetaminophen amount = 4 Grams (4000 mg) / 24 hours. 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 Gender Identity Not on file Sexual Orientation [...] 8:35 AM CDT Height 171 cm (5' 7.32) 03/12/2021 8:35 AM CDT Body Mass Index 29.96 03/12/2021 8:35 AM CDT Plan of Treatment Health Maintenance Due Date Last Done Comments HIV SCREENING 2018 HPV VACCINE (1 - 3-dose series) 2018 CHLAMYDIA/GONORRHEA SCREENING 2019 MENINGOCOCCAL (Group B) VACC INE SHARED DECISION-MAKING (1 of 2 - Standard) 2019 HEPATITIS C SCREENING 03/31/2021 DTAP/TDAP/TD VACCINES (1 - Tdap) 2022 HEPATITIS B VACCINE (1 of 3 - 19+ 3-dose series) 2022 DEPRESSION SCREENING 07/31/2024 COVID-19 VACCINE (1 - 2024-2 6 season) 2025 INFLUENZA VACCINE (#1) 2025 ZOSTER VACCINE (1 of 2) 2053 HIB VACCINE Aged Out No longer eligi ble based on patient's age to complete this topic MENINGOCOCCAL GROUPS A/C/Y/W VACCINE Aged Out No longer eligible b ased on patient's age to complete this topic PNEUMOCOCCAL VACCINE Aged Out No long er eligible based on patient's age to complete this topic Insurance [facility] Advance Directives * Full Code (Latest Code Status on File) Date Activated Date Inactivated Comments 03/12/2021 8:49 AM 03/16/2021 12:23 PM Care Teams Inspector Assemblies And Installations Relationship Specialty Start Date End Date Antonio Greene MD [address] [facility] [address] [place] [address] PCP - General 01/21/21
[2025-07-28 03:10] VITALS: BP 132/64; PULSE 99; RESP 18; TEMP 36.6; O2SAT 99
--- OUTSIDE RECORDS SUMMARY | 2025-07-28 03:46 | XMS_ITS | Clinical Summary ---
Author Organization [facility] Address [address] [facility] [place] [address] Care Team Providers Care Trail Construction Worker Name Role Phone Antonio Greene MD Primary Care Provider [phone] Source Comments [facility],non-owned Affiliates and Associated Physician Practices is amultiple site organization consisting of ambulatory clinics and hospital sitesin [place], [place], [place] and [place]. This disclosure is being madepursuant to the Care Everywhere program and may not contain all information available regarding this patient. Last updated 18.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
--- NOTE | 2025-07-28 04:09 | ED.FEMALEGU ---
HPI - Female Genitourinary General Chief complaint: PRODUCTION OFFICER Stated complaint: vaginal pain Time Seen by Provider: 07/28/25 03:17 History of Present Illness HPI Narrative: 20-year-old otherwise healthy female presenting to the emergency department with vulvar and vaginal irritation. Patient states she was shaving about a week or so ago and then was having vaginal irritation externally around the labia majora. She states that she is having irritation and some bleeding from the sites. She called her PCP and was prescribed yeast infection medications which she has taken orally and vaginally without any help. Tried to get in touch with her OBGYN but the pain was too bad so she came to the ER. Denies any sexual activity, does not feel like she has an STD or urinary complaints. she states any clothing, direct contact or even going to the bathroom urinating causes pain when the urine contacts the area that are inflamed. Sitz bath have helped. Has taken Aleve 2 hours ago but otherwise no pain medications p.o.. Denies any other systemic symptoms. No vaginal bleeding or vaginal discharge. She threw away her razor blade after she noticed that was having some potential mold on it and that is when she used to shave. Related Data Home Medications ?Medication ?Instructions ?Recorded ?Confirmed ?Last Taken ?Type sarecycline 100 mg tablet (Seysara) 100 mg PO DAILY 03/11/22 08/26/24 Unknown History Held on 07/19/23. Instructions: may restart minocycline 4 % topical foam 1 applic topical DAILY 08/23/24 08/26/24 Unknown History (Amzeeq) cholecalciferol (vitamin D3) 50 50 mcg PO DAILY 08/26/24 08/26/24 Unknown History mcg (2,000 unit) capsule Allergies Allergy/AdvReac Type Severity Reaction Status Date / Time No Known Allergies Allergy Verified 07/28/25 03:13 Review of Systems Review of Systems: As reviewed above in HPI All systems reviewed & are unremarkable except as noted in HPI and below PMFSH Past Medical History Medical History BMI 36.0-36.9,adult Acne BMI 32.0-32.9,adult Encounter for routine adult health examination without abnormal findings Injury of nail bed of finger of right hand Pneumonia due to COVID-19 virus COVID-19 Cough Routine sports physical exam Dyslipidemia Iron deficiency anemia Follow up BMI 29.0-29.9,adult Menorrhagia Encounter to establish care Surgical History Surgical History History of esophagogastroduodenoscopy (EGD) 6 yrs old. Found reflux. Currently no issues. Family History Family History Mother Breast cancer Father Thoracic aortic aneurysm (TAA) Social History Social History Smoking status: Never smoker Alcohol intake: never Substance use: never Substance use type: does not use Living arrangements: with family Occupation/Education: student Gender identity (if verbalized by the patient): Female Sexual Orientation (if Verbalized by the Patient): Straight or Heterosexual Spiritual care concerns: No Exam Narrative: GENERAL: [Well-appearing, well-nourished, and in no acute distress.] HEAD: [Normocephalic, atraumatic.] EYES: PERLLA : External vaginal examination chaperoned by nurse shows redness and irritation around the labia minora and labia majora. Tenderness to palpation, some minor razor bumps are seen, no vaginal discharge or mucus. No blood. EXTREMITIES: Normal range of motion. [No edema.] SKIN: Warm, dry, no rash. NEURO: [No focal deficits]. Alert and oriented [x3.] PSYCH: [Normal mood and affect.] Course Vital Signs Vital signs: Vital Signs Temperature 36.6 C 07/28/25 03:10 Pulse Rate 99 07/28/25 03:10 Respiratory Rate 18 07/28/25 03:10 Blood Pressure 132/64 07/28/25 03:10 Pulse Oximetry 99 07/28/25 03:10 Oxygen Delivery Room Air 07/28/25 03:10 Temperature 36.6 C 07/28/25 03:10 Pulse Rate 99 07/28/25 03:10 Respiratory Rate 18 07/28/25 03:10 Blood Pressure 132/64 07/28/25 03:10 Pulse Oximetry 99 07/28/25 03:10 Oxygen Delivery Room Air 07/28/25 03:10 MDM MDM Narrative Medical decision making narrative: 20-year-old otherwise healthy female presenting to the emergency department with vulvar and vaginal irritation. Patient states she was shaving about a week or so ago and then was having vaginal irritation externally around the labia majora. She states that she is having irritation and some bleeding from the sites. She called her PCP and was prescribed yeast infection medications which she has taken orally and vaginally without any help. Tried to get in touch with her OBGYN but the pain was too bad so she came to the ER. Denies any sexual activity, does not feel like she has an STD or urinary complaints. she states any clothing, direct contact or even going to the bathroom urinating causes pain when the urine contacts the area that are inflamed. Sitz bath have helped. Has taken Aleve 2 hours ago but otherwise no pain medications p.o.. Denies any other systemic symptoms. No vaginal bleeding or vaginal discharge. She threw away her razor blade after she noticed that was having some potential mold on it and that is when she used to shave. External vaginal examination chaperoned by nurse shows redness and irritation around the labia minora and labia majora. Tenderness to palpation, some minor razor bumps are seen, no vaginal discharge or mucus. No blood. Symptoms consistent with vulvar irritation or early folliculitis. Will trial a combination topical antibiotic with mupirocin and pain control with topical lidocaine. Topical hydrocortisone for itching and swelling also prescribed. Prescription for this combination was sent to her pharmacy. She will have to follow up with her OBGYN and given return precautions. Safe for discharge at this time. Differential Diagnosis Differential Diagnosis: Symptoms consistent with vulvar irritation or early folliculitis. Discharge Plan Discharge Clinical Impression: Vulvar irritation Patient Disposition: Home Condition: Stable Instructions: Antibiotic Form, Folliculitis (ED) Additional Instructions: Exam and symptoms consistent with vulvar irritation from the razor verses early folliculitis from bacterial or fungal infection. The antifungal medications have not helped thus far so we will trial a topical antibiotic therapy. We have prescribed you medication with a combination antibiotic and lidocaine to help with pain and healing. Avoid shaving any further until healed and speak with your OBGYN for a follow-up visit. Return with any emergent concerns at any time. Topical therapies in addition to the oral anti-inflammatory such as Tylenol, Aleve, ibuprofen every 6-8 hours will also help pain and symptom control. Sitz baths, warm baths as needed for pain control. Patient Language: Faroese Prescriptions: New mupirocin-lidocaine 2-2 % ointment See Rx Instructions .ROUTE .COMPLEX Qty: 30 0RF Rx Instructions: Apply externally up to 3 times per day hydrocortisone 1 % gel 1 applic topical TID PRN (Reason: skin irritation) Qty: 28 0RF No Action Seysara 100 mg tablet 100 mg PO DAILY Amzeeq 4 % foam 1 applic topical DAILY fluticasone propionate [Flonase Allergy Relief] 50 mcg/actuation spray,suspension 1 spray intranasal Q12H Qty: 16 0RF Rx Instructions: administer into each nostril albuterol sulfate 90 mcg/actuation HFA aerosol inhaler See Rx Instructions .ROUTE .COMPLEX Qty: 8.5 0RF Dose Instruction: INHALE 2 PUFFS BY MOUTH FOUR TIMES DAILY NEEDED FOR SHORTNESS OF BREATH OR WHEEZING Rx Instructions: INHALE 2 PUFFS BY MOUTH FOUR TIMES DAILY NEEDED FOR SHORTNESS OF BREATH OR WHEEZING spironolactone 50 mg tablet 150 mg PO DAILY Qty: 90 0RF cholecalciferol (vitamin D3) 1,250 mcg (50,000 unit) capsule See Rx Instructions PO WEEKLY Qty: 10 0RF Rx Instructions: 1 tablet weekly for 8 weeks; then 1 tablet monthly for 2 months orally weekly; cholecalciferol (vitamin D3) 50 mcg (2,000 unit) capsule 50 mcg PO DAILY Mounjaro 2.5 mg/0.5 mL pen injector 2.5 mg subcut WEEKLY Qty: 2 0RF Rx Instructions: for 4 weeks fluconazole 150 mg tablet 150 mg PO DAILY Qty: 3 0RF Follow-up/Referrals: Sebastián Farrell MD [Primary Care Provider, [facility]] Time of Disposition: 04:07
[2025-07-28] MEDS: MUPIROCIN 2% OINT 22 GM TUBE 1 APPLIC TOPICAL (04:21)
[2025-07-28] MEDS: LIDOCAINE 2% JELLY 5 ML TUBE 1 APPLIC MUCOUS MEM (04:25)
== END 2025-07-28 04:43 | disposition home or self-care (01) ==
PROVIDERS: Emergency Provider Student in an Organized Health Care Education/Training Program; PCP Obstetrics & Gynecology
DX: N89.8 Other specified noninflammatory disorders of vagina (principal); E78.5 Hyperlipidemia, unspecified; D50.9 Iron deficiency anemia, unspecified; Z86.16 Personal history of COVID-19; Z87.01 Personal history of pneumonia (recurrent)
CPT/HCPCS: 99283; A9270